=== PATIENT | female | born 1955 | race Caucasian/White ===

== ENCOUNTER 2017-11-27 14:08 | Outpatient (CLI) | payer BC | END 2017-11-27 14:09 | disposition home or self-care (01) | LOC: BICRAD 14:08 | PROVIDERS: ATTEND Internal Medicine | DX: M54.9 Dorsalgia, unspecified (principal) | CPT/HCPCS: 72072 ==

== ENCOUNTER 2017-12-11 15:20 | Outpatient (CLI) | payer BC | END 2017-12-11 15:21 | disposition home or self-care (01) | LOC: BICMAMMO 15:20 | PROVIDERS: ATTEND Internal Medicine | DX: Z12.31 Encounter for screening mammogram for malignant neoplasm of breast (principal); R92.2 Inconclusive mammogram; Z80.3 Family history of malignant neoplasm of breast | CPT/HCPCS: 77063; 77067 ==

== ENCOUNTER 2017-12-16 09:23 | Outpatient (CLI) | payer BC | END 2017-12-16 09:24 | disposition home or self-care (01) | LOC: BICMAMMO 09:23 | PROVIDERS: ATTEND Internal Medicine | DX: N64.89 Other specified disorders of breast (principal); Z80.3 Family history of malignant neoplasm of breast | CPT/HCPCS: G0279 ==

== ENCOUNTER 2019-12-29 15:03 | Outpatient (CLI) | payer MEDICARE, OTHER ==
--- NOTE | 2019-12-29 16:08 | MMO ---
Bilateral MAMMO Bilat Diag [facility]. CLINICAL HISTORY: Patient is 64 years old and is seen for diagnostic exam and palpable abnormality in the left breast. The patient has the following family history of breast cancer: mother, at age 60 and sister, at age 50. The patient has no personal history of cancer. VIEWS: The views performed were: bilateral craniocaudal with tomosynthesis; bilateral mediolateral oblique with tomosynthesis; and bilateral mediolateral with tomosynthesis. FILMS COMPARED: The present examination has been compared to prior imaging studies performed at [facility] on 12/11/2017, 12/16/2017 and 12/29/2019, and at [facility] on 08/22/2009. This study has been interpreted with the assistance of computer-aided detection. MAMMOGRAM FINDINGS: The breasts are heterogeneously dense, which could obscure a lesion on mammography. There is an irregular mass measuring 17 millimeters with spiculated margins seen in the middle upper-outer region of the left breast. In the right breast, there are no suspicious masses, calcifications or areas of architectural distortion. The patient was informed of the exam results. The referring physician's office is currently closed. The patient was given an appointment for ultrasound guided biopsy Tuesday December 31, 2019. IMPRESSION: MASS IN THE LEFT BREAST IS HIGHLY SUGGESTIVE OF MALIGNANCY. AN ULTRASOUND-GUIDED BREAST BIOPSY IS RECOMMENDED. THE RESULTS OF THIS EXAM WERE SENT TO THE PATIENT. ACR BI-RADS Category 5 - Highly suggestive of malignancy - appropriate action should be taken MAMMOGRAPHY NOTE: 1. A negative mammogram report should not delay a biopsy if a dominant of clinically suspicious mass is present. 2. Approximately 10% to 15% of breast cancers are not detected by mammography. 3. Adenosis and dense breasts may obscure an underlying neoplasm. Reported by: SCOT MATTA MD Electonically Signed: [id number]
--- NOTE | 2019-12-29 16:46 | ULT ---
ULTRASOUND LEFT BREAST LIMITED: 12/29/19 HISTORY: 64-year-old female with palpable lump in left upper outer quadrant. Dr. Aaron notified the patient of the findings and recommendation for biopsy. She was given an appointm ent for ultrasound guided biopsy at the [facility] for Tuesday, December 31, 2019. TECHNIQUE: Focused ultrasound of the palpable lump. FINDINGS: At approximately 12 o'clock in the upper left breast, 3 cm from the nipple, there is a taller than wi de hypoechoic mass with strong acoustic shadowing, measuring approximately 1.5 x 1 x 1 cm. There is b lood flow in the near field. Margins are ill-defined. Ultrasound of the left axilla demonstrates a normal size 0.9 x 0.7 cm lymph node with normal fatty hi lum. IMPRESSION: 1. BIRADS 5: Highly Susupicious for Malignancy - Appropriate Action Should Be Taken. Requires biopsy or surgical treatment. 2. Recommend ultrasound guided biopsy of the spiculated mass in the left breast.
== END 2019-12-29 15:04 | disposition home or self-care (01) ==
LOC: BICMAMMO 15:03
PROVIDERS: ATTEND Internal Medicine
DX: N63.20 Unspecified lump in the left breast, unspecified quadrant (principal)
CPT/HCPCS: 76642; 77066; G0279

== ENCOUNTER → 2019-12-31 | Day surgery (SDC) | payer MEDICARE, OTHER ==
--- NOTE | 2019-12-31 13:44 | MMO ---
Left Breast MAMMO Unilat Diag [facility]. CLINICAL HISTORY: Patient is 64 years old and is seen for diagnostic exam. VIEWS: The views performed were: . FILMS COMPARED: The present examination has been compared to prior imaging studies performed at [facility] on 12/11/2017, 12/16/2017 and 12/29/2019. This study has been interpreted with the assistance of computer-aided detection. MAMMOGRAM FINDINGS: Left biopsy clip is slightly inferomedial to the mass.. IMPRESSION: FINDING IN THE LEFT BREAST IS CONFIRMED UTILIZING POST PROCEDURE MAMMOGRAM. THE RESULTS OF THIS EXAM WERE SENT TO THE PATIENT. MAMMOGRAPHY NOTE: 1. A negative mammogram report should not delay a biopsy if a dominant of clinically suspicious mass is present. 2. Approximately 10% to 15% of breast cancers are not detected by mammography. 3. Adenosis and dense breasts may obscure an underlying neoplasm. Reported by: STELLA FERRELL MD Electonically Signed: [id number]
--- NOTE | 2019-12-31 13:53 | ULT ---
Exam: Ultrasound guided left breast biopsy HISTORY: Left breast mass COMPARISON: 12/29/2019 FINDINGS: Successful left breast biopsy with ultrasound guidance. A total of 3 14-gauge core biopsy s amples were obtained. Post procedure ossicle displaced. Postbiopsy mammogram was performed. TECHNIQUE: Consent obtained to perform a left breast biopsy with ultrasound guidance. Left breast was prepped and draped in a sterile fashion. 1% lidocaine, buffered with sodium bicarbonate was used for local anesthesia. Under sonographic guidance, a 14-gauge biopsy needle was used to obtain 3 separ ate samples. Samples were placed directly in formalin. Postbiopsy clip was placed. Patient tolerated the procedure well. No immediate or postprocedure complications. Postprocedure mammogram wa s performed. The biopsy clip is medial and slightly inferior to the region of concern. There is a separate post mammogram report IMPRESSION: Successful left breast biopsy with ultrasound guidance. A biopsy clip was placed.
== END ==
LOC: BICULT 11:58
PROVIDERS: ATTEND Internal Medicine
PROC: 0H9U3ZX Drainage of Left Breast, Percutaneous Approach, Diagnostic (ICD-10-PCS; principal; 2019-12-31)
DX: C50.412 Malignant neoplasm of upper-outer quadrant of left female breast (principal)
CPT/HCPCS: 19083; 88305; 88341; 88342

== ENCOUNTER 2023-03-21 09:07 | Outpatient (CLI) | payer MEDICARE, OTHER | END 2023-03-21 09:08 | disposition home or self-care (01) | LOC: BICMAMMO 09:07 | PROVIDERS: ATTEND Internal Medicine Hematology & Oncology | DX: Z12.31 Encounter for screening mammogram for malignant neoplasm of breast (principal); N63.21 Unspecified lump in the left breast, upper outer quadrant; Z91.89 Other specified personal risk factors, not elsewhere classified; Z85.3 Personal history of malignant neoplasm of breast | CPT/HCPCS: 76642; 77065; G0279 ==

== ENCOUNTER 2023-09-12 13:21 | Outpatient (CLI) | payer MEDICARE, OTHER | END 2023-09-12 13:22 | disposition home or self-care (01) | LOC: BICMAMMO 13:21 | PROVIDERS: ATTEND Internal Medicine Hematology & Oncology | DX: Z08 Encounter for follow-up examination after completed treatment for malignant neoplasm (principal); Z85.3 Personal history of malignant neoplasm of breast | CPT/HCPCS: 77066; G0279 ==